=== PATIENT | male | born 1970 | race Caucasian/White ===

== ENCOUNTER 2017-12-30 20:06 | Emergency (ER) | payer SELFPAY ==
[~2017-12-30] VITALS: Ht 185.4 cm; Wt 92.5 kg
[2017-12-30 20:17] VITALS: BP 126/81
--- NOTE | 2017-12-30 20:19 | NUR ---
PT RETURNED TO LOBBY
--- NOTE | 2017-12-30 20:30 | NUR ---
PT. AMBULATED TO ED FORREST
[2017-12-30] MEDS ORDERED: ceFAZolin 1,000 MG VIAL IM ONE (21:00)
--- NOTE | 2017-12-30 21:10 | NUR ---
PT. AMBULATED TO ER BED 06
--- NOTE | 2017-12-30 21:11 | NUR ---
47/M CAME IN ED, C/O 04/29 THROBBING L BIG TOE PAIN, X3 DAYS. L TOE OPEN WOUND WITHOUT NAIL NOTED, MINIMAL DISCHARGE. PT REPORTS HAVING A CRUSHING INJURY WITH A "HAND TRUCK" X1 WEEK. HX DM. PT REPORTS HE HAS BEEN TAKING IBUPROFEN, LAST DOSE 2 DAYS AGO. PT DENIES N/V/D; SKIN IS INTACT, PINK/WARM/DRY; AAOX4, PERRL, WITH EVEN AND STEADY GAIT; LUNGS CLEAR BL, BREATHING UNLABORED; HR EVEN AND REGULAR, BL PERIPHERAL PULSES PRESENT; BS ACTIVE X4, NO TENDERNESS TO PALPATION; PT DENIES ANY FEVER, CP, SOB, OR COUGH AT THIS TIME; VSS; PATIENT POSITIONED FOR COMFORT; HOB ELEVATED; BEDRAILS UP X2; BED DOWN.
--- NOTE | 2017-12-30 22:02 | NUR ---
X-Ray at bedside.
[2017-12-30 22:22] VITALS: BP 137/88
--- NOTE | 2017-12-30 22:22 | NUR ---
Patient discharged with v/s stable. Written and verbal after care instructions given and explained. Patient alert, oriented and verbalized understanding of instructions. Ambulatory with steady gait. All questions addressed prior to discharge. ID band removed. Patient advised to follow up with PMD. Rx of KEFLEX, NORCO, MOTRIN given. Patient educated on indication of medication including possible reaction and side effects. Opportunity to ask questions provided and answered.
== END 2017-12-30 22:22 | disposition home or self-care (01) ==
LOC: MED 20:06
DX: S91.202A Unspecified open wound of left great toe with damage to nail, initial encounter (principal); L08.9 Local infection of the skin and subcutaneous tissue, unspecified; X58.XXXA Exposure to other specified factors, initial encounter; Y93.89 Activity, other specified; Y92.89 Other specified places as the place of occurrence of the external cause; Y99.8 Other external cause status
CPT/HCPCS: 73630; 87070; 90471; 90715; 96372; 99285; J0690; Q0092

== ENCOUNTER 2018-01-11 22:16 | Emergency (ER) | payer SELFPAY ==
[~2018-01-11] VITALS: Ht 185.4 cm; Wt 91.6 kg
[2018-01-11 22:21] VITALS: BP 129/92
[2018-01-11] MEDS ORDERED: KETOROLAC 30 MG/ML VIAL IVP ONE (22:30)
--- NOTE | 2018-01-11 22:30 | NUR ---
PATIENT PRESENTS TO ED WITH LACERATION TO RIGHT HAND BETWEEN 1ST AND 2ND FINGERS. PT STATES HE WAS DRILLING WITH ELECTRIC DRILL AND DRILLED INTO HIS HAND. 1 INCH LAC PRESENT, OPEN, UNEVEN SURROUNDING SKIN. BLEEDING CONTROLLED. DR COOK AT BEDSIDE FOR EVALUATION. DENIES N/V/D; SKIN IS PINK/WARM/DRY; AAOX4 WITH EVEN AND STEADY GAIT; LUNGS CLEAR BL; HR EVEN AND REGULAR; PT DENIES ANY FEVER, CP, SOB, OR COUGH AT THIS TIME; PATIENT STATES PAIN OF 7/10 AT THIS TIME; VSS; PATIENT POSITIONED FOR COMFORT; HOB ELEVATED; BEDRAILS UP X2; BED DOWN. ER MD MADE AWARE OF PT STATUS. CONTINUE TO MONITOR.
[2018-01-11] MEDS ORDERED: ceFAZolin 1,000 MG VIAL ONE (22:36)
[2018-01-11] MEDS ORDERED: LIDOCAINE MPF 1% - **ER/OR** 5 ML ONE ×2 (22:39→23:00)
[2018-01-11] MEDS ORDERED: BACITRACIN OINT 500 UNITS/GM PKT TP ONE ×2 (23:07→23:55)
[2018-01-11 23:29] VITALS: BP 129/92
--- NOTE | 2018-01-11 23:29 | NUR ---
Patient discharged with v/s stable. Written and verbal after care instructions given and explained. Patient alert, oriented and verbalized understanding of instructions. Ambulatory with steady gait. All questions addressed prior to discharge. ID band removed. Patient advised to follow up with PMD. Rx of Naprosyn and Keflex given. Patient educated on indication of medication including possible reaction and side effects. Opportunity to ask questions provided and answered.
[2018-01-11] MEDS ORDERED: LIDOCAINE 1% 500 MG/50 ML VIAL INJ SCH (23:55)
--- NOTE | 2018-01-14 20:01 | NUR ---
LATE ENTRY FOR CEFAZOLIN SODIUM/DEXTROSE ADMINISTRATION. START TIME 22:40 END TIME: 32:10
== END 2018-01-11 23:29 | disposition home or self-care (01) ==
LOC: MED 22:16
DX: S61.031A Puncture wound without foreign body of right thumb without damage to nail, initial encounter (principal); E11.9 Type 2 diabetes mellitus without complications; W27.8XXA Contact with other nonpowered hand tool, initial encounter; Y93.89 Activity, other specified; Y92.89 Other specified places as the place of occurrence of the external cause; Y99.8 Other external cause status
CPT/HCPCS: 12001; 73140; 96365; 96375; 99284; J0690; J1885; J2001; Q0092

== ENCOUNTER 2018-01-13 22:08 | Emergency (ER) | payer SELFPAY ==
[~2018-01-13] VITALS: Ht 185.4 cm; Wt 91.2 kg
[2018-01-13 22:14] VITALS: BP 152/92
--- NOTE | 2018-01-13 22:22 | NUR ---
PT AMBULATED TO ER BED 4.
--- NOTE | 2018-01-13 22:27 | NUR ---
WOUND RECHECK OF BILAT BIG TOES (NAIL REMOVED) AND SUTURES ON R HAND, 0/10 PAIN. PT DENIES N/V/D; SKIN IS INTACT EXCEPT NOTATION ABOVE, PINK/WARM/DRY; AAOX4, PERRL, WITH EVEN AND STEADY GAIT; LUNGS CLEAR BL, BREATHING UNLABORED; HR EVEN AND REGULAR, BL PERIPHERAL PULSES PRESENT; BS ACTIVE X4, NO TENDERNESS TO PALPATION, NO HEPATOSPLENOMEGALLY PALPATED, RESONANT TO PERCUSSION; PT DENIES ANY FEVER, CP, SOB, OR COUGH AT THIS TIME; PT STATES 0/10 PAIN AT THIS TIME; VSS; PATIENT POSITIONED FOR COMFORT; HOB ELEVATED; BEDRAILS UP X2; BED DOWN.
--- NOTE | 2018-01-13 22:38 | NUR ---
Patient discharged with v/s stable. Written and verbal after care instructions given and explained. Patient alert, oriented and verbalized understanding of instructions. Ambulatory with steady gait. All questions addressed prior to discharge. ID band removed. Patient advised to follow up with PMD. Rx of BACTRIM DS given. Patient educated on indication of medication including possible reaction and side effects. Opportunity to ask questions provided and answered.
== END 2018-01-13 22:39 | disposition home or self-care (01) ==
LOC: MED 22:08
DX: S61.210D Laceration without foreign body of right index finger without damage to nail, subsequent encounter (principal); E11.9 Type 2 diabetes mellitus without complications; Z48.01 Encounter for change or removal of surgical wound dressing; X58.XXXD Exposure to other specified factors, subsequent encounter
CPT/HCPCS: 82948; 99283

== ENCOUNTER 2018-01-18 00:09 | Emergency (ER) | payer SELFPAY ==
[~2018-01-18] VITALS: Ht 185.4 cm; Wt 92.1 kg
[2018-01-18 00:19] VITALS: BP 153/92
[2018-01-18 02:50] VITALS: BP 145/90
== END 2018-01-18 02:50 | disposition home or self-care (01) ==
LOC: MED 00:09
DX: S61.011D Laceration without foreign body of right thumb without damage to nail, subsequent encounter (principal); E11.9 Type 2 diabetes mellitus without complications; X58.XXXD Exposure to other specified factors, subsequent encounter
CPT/HCPCS: 99283

== ENCOUNTER 2018-01-24 23:45 | Emergency (ER) | payer SELFPAY ==
[~2018-01-24] VITALS: Ht 185.4 cm; Wt 92.1 kg
[2018-01-24 23:55] VITALS: BP 116/55
--- NOTE | 2018-01-25 | NUR ---
to lobby amb, a/w oxana nielson ermd noted
--- NOTE | 2018-01-25 00:44 | NUR ---
TO BED # 3 AMBULATORY, REPORT GIVEN TO ERASMO RAMIREZ.
--- NOTE | 2018-01-25 00:45 | NUR ---
PT DENIES N/V/D; PT C/O BILAT BIG TOE WOUNDS AFTER NAILS PEELED OFF. +ERYTHEMA, NO DRAINAGE NOTED. 9/10 SHARP PAIN WORSENING TODAY PER PT. AAOX4, PERRL, WITH EVEN AND STEADY GAIT; LUNGS CLEAR BL, BREATHING UNLABORED; HR EVEN AND REGULAR, BL PERIPHERAL PULSES PRESENT; BS ACTIVE X4, NO TENDERNESS TO PALPATION, NO HEPATOSPLENOMEGALLY PALPATED, RESONANT TO PERCUSSION; PT DENIES ANY FEVER, CP, SOB, OR COUGH AT THIS TIME; VSS; PATIENT POSITIONED FOR COMFORT; HOB ELEVATED; BEDRAILS UP X2; BED DOWN.
--- NOTE | 2018-01-25 01:22 | NUR ---
REPORT GIVEN TO JOB RAMIREZ
--- NOTE | 2018-01-25 01:30 | NUR ---
PATIENT RESTING AT THIS TIME. NO SIGNS OF DISTRESS.
[2018-01-25] MEDS ORDERED: BACITRACIN OINT 500 UNITS/GM PKT TP ONE (02:08)
[2018-01-25 02:10] VITALS: BP 121/85
--- NOTE | 2018-01-25 02:10 | NUR ---
Patient discharged with v/s stable. Written and verbal after care instructions given and explained. Patient verbalized understanding. Ambulatory with steady gait. All questions addressed prior to discharge. Advised to follow up with PMD.
== END 2018-01-25 02:10 | disposition home or self-care (01) ==
LOC: MED 23:45
DX: S90.121A Contusion of right lesser toe(s) without damage to nail, initial encounter (principal); E11.9 Type 2 diabetes mellitus without complications; W20.8XXA Other cause of strike by thrown, projected or falling object, initial encounter; Y93.89 Activity, other specified; Y99.8 Other external cause status; Y92.89 Other specified places as the place of occurrence of the external cause
CPT/HCPCS: 73630; 99284

== ENCOUNTER 2018-03-22 00:48 | Emergency (ER) | payer MEDICAID ==
[~2018-03-22] VITALS: Ht 185.4 cm; Wt 94.3 kg
[2018-03-22 00:52] VITALS: BP 153/87
--- NOTE | 2018-03-22 00:55 | NUR ---
TO BED # 8 AMBULATORY, REPORT GIVEN TO TOM RAMIREZ
--- NOTE | 2018-03-22 00:55 | NUR ---
47/M CAME IN W C/O LEFT FLANK PAIN, NAUSEA AND DYSURIA X 2 DAYS. ABD SOFT, ROUND, -TENDERNESS, BS ACTIVE X 4. +FLANK TENDERNESS. DENIES HEMATURIA, V/D, FEVER/CHILLS. PMH: DM
[2018-03-22] MEDS ORDERED: NACL 0.9% 500 ML IV ONE (01:21)
[2018-03-22] MEDS ORDERED: KETOROLAC 30 MG/ML VIAL IVP ONE (01:25)
[2018-03-22] MEDS ORDERED: ONDANSETRON 4 MG/2 ML VIAL IVP ONE (01:25)
--- NOTE | 2018-03-22 02:58 | NUR ---
Patient discharged with v/s stable. Written and verbal after care instructions given and explained. Patient alert, oriented and verbalized understanding of instructions. Ambulatory with steady gait. All questions addressed prior to discharge. ID band removed. Patient advised to follow up with PMD. Rx of MOTRIN, LACTULOSE given. Patient educated on indication of medication including possible reaction and side effects. Opportunity to ask questions provided and answered. IV removed, catheter intact and site benign. Applied folded 4x4 gauze and tape to stop bleeding.
[2018-03-22 03:09] VITALS: BP 128/71
== END 2018-03-22 02:58 | disposition home or self-care (01) ==
LOC: MED 00:48
DX: S39.012A Strain of muscle, fascia and tendon of lower back, initial encounter (principal); K59.00 Constipation, unspecified; E11.9 Type 2 diabetes mellitus without complications; X58.XXXA Exposure to other specified factors, initial encounter; Y93.89 Activity, other specified; Y92.89 Other specified places as the place of occurrence of the external cause; Y99.8 Other external cause status
CPT/HCPCS: 74176; 82948; 96361; 96374; 96375; 99284; J1885; J2405

== ENCOUNTER 2018-08-14 21:39 | Emergency (ER) | payer SELFPAY ==
[~2018-08-14] VITALS: Ht 185.4 cm; Wt 96.2 kg
[2018-08-14 21:58] VITALS: BP 138/76
--- NOTE | 2018-08-14 22:02 | NUR ---
TO LOBBY A/E BED, VSS AMBULATORY, MELONY NOTED
--- NOTE | 2018-08-14 22:19 | NUR ---
PATIENT LEFT WITHOUT BEING SEEN BY DR. LAM. NO FURTHER CARE PROVIDED FOR PATIENT.
--- NOTE | 2018-08-14 23:13 | NUR ---
PT TO ER BED 8
[2018-08-14] MEDS ORDERED: NACL 0.9% 1,000 ML IV ONE (23:50)
[2018-08-15 00:27] LABS: BASOPHILS % (AUTO) 0.6 % (0.0-2.0); EOSINOPHILS # (AUTO) 0.3 K/uL (0-0.4); HEMATOCRIT 40.2 % (36-52); HEMOGLOBIN 13.4 g/dL (12.0-18.0); LYMPHOCYTES # (AUTO) 2.9 K/uL (2.0-11.5); LYMPHOCYTES % (AUTO) 39.3 % (20.5-51.1); MEAN CORPUSCULAR HEMOGLOBIN 30 pg (27-31); MEAN CORPUSCULAR HGB CONC 33 g/dL (33-37); MEAN CORPUSCULAR VOLUME 90.1 fL (80-94); MONOCYTES # (AUTO) 0.6 K/uL (0.8-1.0); MONOCYTES % (AUTO) 7.9 % (1.7-9.3); NEUTROPHILS # (AUTO) 3.5 K/uL (1.8-7.7); NEUTROPHILS % (AUTO) 48.2 % (42.2-75.2); PLATELET COUNT (AUTO) 224 K/uL (140-450); RED BLOOD CELL COUNT(AUTO) 4.47 MIL/uL (4.20-6.10); RED CELL DISTRIBUTION WIDTH 13.1 % (11.6-13.7); WHITE BLOOD COUNT (AUTO) 7.3 K/uL (4.8-10.8)
[2018-08-15 00:46] LABS: POTASSIUM 4.6 mmol/L (3.5-5.1)
[2018-08-15 00:47] LABS: ANION GAP 6.9 (8-16); CARBON DIOXIDE 30.7 mmol/L (21-32); CREATININE 0.9 mg/dL (0.7-1.3)
[2018-08-15 00:51] LABS: FREE T4 (FREE THYROXINE) 0.99 ng/dL (0.76-1.46); TOTAL BILIRUBIN 0.3 mg/dL (0.0-1.0)
[2018-08-15 00:52] LABS: THYROID STIMULATING HORMONE 1.03 uIU/mL (0.34-3.74)
[2018-08-15 02:06] LABS: BARBITURATE, URINE NEG. ng/ml (NEG <=200); BENZODIAZEPINE, URINE NEG. ng/mL (NEG <=200); CANNABINOID, URINE NEG. ng/mL (NEG <=50); COCAINE, URINE NEG. ng/mL (NEG <=300); OPIATE, URINE NEG. ng/mL (NEG <=2000); PHENCYCLIDINE SCREEN,URINE NEG. ng/mL (NEG <=25)
[2018-08-15 02:11] VITALS: BP 126/83
== END 2018-08-15 02:11 | disposition home or self-care (01) ==
LOC: MED 21:39
DX: R55 Syncope and collapse (principal); F15.90 Other stimulant use, unspecified, uncomplicated; E11.9 Type 2 diabetes mellitus without complications; I10 Essential (primary) hypertension
CPT/HCPCS: 36415; 71045; 80053; 80305; 84439; 84443; 84484; 85025; 93005; 96360; 99284; J7030; Q0092